=== PATIENT | male | born 1960 | race African-American/Black ===

== ENCOUNTER 2019-05-25 11:18 | Emergency (ER) | payer OTHER, SELFPAY ==
--- NOTE | ~2019-05-25 | CT_ITS ---
EXAMINATION: CT abdomen pelvis w con DATE: 05/25/2019 12:55 INDICATION: Left lower quadrant abdominal pain. Left flank pain. TECHNIQUE: Computed tomography (CT) of the abdomen and pelvis was performed with 100 mL Omnipaque 350 intravenous contrast. Automated exposure control and iterative reconstruction technique were employe d. The dose-length product was 1252.83 mGy-cm. COMPARISON: None. FINDINGS: The visualized portions of the lung bases demonstrate mild atelectasis. No pleural effusion . The heart size is normal. No pericardial effusion. The liver, gallbladder, spleen, pancreas, adrena l glands, and right kidney are normal. There is a 1 mm stone in left kidney. There is asymmetric earl a around left kidney. There is mild left hydroureter. The prostate is mildly enlarged. There are no d ilated loops of bowel. The appendix is normal. There are no pathologically enlarged lymph nodes. Ther e is no free intraperitoneal fluid. There is severe lower lumbar spondylosis. IMPRESSION: 1. Mild left hydroureter, which may be secondary to a recently passed stone. 2. 1 mm nonobstructing left kidney stone. Reviewed, dictated and finalized at location A.
[2019-05-25 11:20] VITALS: BP 136/76; PULSE 60; RESP 20; TEMP 36.4; O2SAT 100
--- NOTE | 2019-05-25 11:22 | ED.GENADULT ---
HPI - General Adult General Chief complaint: Abdominal Pain Stated complaint: L abd pain Time Seen by Provider: 05/25/19 11:21 Source: patient Mode of arrival: ambulatory Limitations: no limitations History of Present Illness HPI narrative: Patient is a 59-year-old male who presents for evaluation of severe abdominal pain. Patient initially presented to an urgent care center for 10 out of 10 left lower quadrant pain and left flank pain and was referred to our facility. At the time of assessment at our facility, patient's pain is improved, rated 3 out of 4 in severity in the left flank with radiation to the left lower abdomen. No associated fever, chills, nausea, vomiting, hematuria, dysuria or diarrhea. No chest pain or shortness of breath. No numbness. Patient does endorse some recent heavy lifting, states he was moving very heavy bags of mulch 2 days ago, but the pain in his back did not occur until this morning and it was very acute onset. No testicular pain. Related Data Allergies Allergy/AdvReac Type Severity Reaction Status Date / Time NKDA Allergy Unknown unknown Uncoded 01/29/19 10:57 Review of Systems Review of Systems: Narrative: CONSTITUTIONAL: Denies fever, chills, or sweats. ENT: Denies rhinorrhea, congestion, sore throat, or otalgia. CARDIOVASCULAR: Denies chest pain, palpitations, or edema. RESPIRATORY: Denies cough or dyspnea. GASTROINTESTINAL: Denies abdominal pain, nausea, vomiting, or diarrhea. GENITOURINARY: Denies dysuria or hematuria. SKIN: Denies rash or itching. MUSCULOSKELETAL: Reports left flank pain NEUROLOGIC: Denies headache, numbness, or weakness. [facility] Past Medical History Medical History (Updated 05/25/19 @ 13:43 by Darcie Gregorio MD) Tonsillectomy planned Social History Social History Smoking status: Never smoker Second hand tobacco smoke exposure: No Alcohol intake: never Substance use: never Substance use type: does not use Gender identity (if verbalized by the patient): Male Exam Narrative: Exam Narrative: GENERAL: Awake, alert, conversant HEAD: Normocephalic, atraumatic. EYES: PERRLA and EOMI. ENT: Nares clear, no rhinorrhea or epistaxis. Mucous membranes moist. NECK: Supple. CHEST: No respiratory distress, breathing even and non labored HEART: Regular rate, sinus rhythm ABDOMEN:Non distended, non tender, no suprapubic tenderness, mild left flank tenderness EXTREMITIES: Normal range of motion. No edema. SKIN: Warm, dry, no rash. NEURO:No focal deficits. Alert and oriented x3 Course Vital Signs Vital signs: Vital Signs Temperature 36.4 C 05/25/19 11:20 Pulse Rate 60 05/25/19 11:20 Respiratory Rate 20 05/25/19 11:20 Blood Pressure 136/76 05/25/19 11:20 Pulse Oximetry 100 05/25/19 11:20 Temperature 36.4 C 05/25/19 11:20 Pulse Rate 58 L 05/25/19 11:32 Respiratory Rate 18 05/25/19 11:32 Blood Pressure 132/80 05/25/19 11:32 Pulse Oximetry 99 05/25/19 11:32 Medical Decision Making MDM Narrative Medical decision making narrative: Patient presented for evaluation of left flank pain. At the time of initial assessment, ABCs are intact and vital signs are stable. Pain is mild to moderate, no severe pain. Pain is not reproducible on exam. IV access obtained and labs are drawn. Urine is notable for hematuria without infection. Other labs are reassuring. CT scan with evidence of left hydroureter, possibly due to recently passed stone which would fit with the patient's clinical history. Patient continues to have some mild, aching pain, thus we can give him a very short-term prescription for outpatient pain medicine. I did let him know he has another kidney stone present that he will likely pass in the future. Patient was then discharged home and advised to follow-up with his PC. Vital Signs Vital Signs: Vital Signs Temperature 36.4 C 05/25/19 11:20 Pulse Rate 60
[2019-05-25 11:32] VITALS: BP 132/80; PULSE 58; RESP 18; O2SAT 99
--- NOTE | 2019-05-25 11:33 | PC.NURSE ---
pt ambulating to the restroom at this time w/ erp alessandro.
[2019-05-25 11:36] LABS: Basophils Percent Auto 0.4 % (0.2-1.2); Eosinophils Percent Auto 0.1 % (0-4.4); Hematocrit 43.5 % (42.0-52.0); Immature Granulocyte Absolute 0.06 K/mm3 (0.00-0.031); Immature Granulocyte Percent A 0.5 % (0-0.5); Lymphocytes Absolute Auto 1.12 K/mm3 (0.9-3.2); Mean Corpuscular HGB Conc 34.5 g/dl (32-36); Mean Corpuscular Hemoglobin 28.1 pg (26-34); Mean Corpuscular Volume 81.6 fl (80-100); Mean Platelet Volume 12.3 fl (7.4-10.4); Monocytes Absolute Auto 0.5 K/mm3 (0.1-0.6); Monocytes Percent Auto 4.8 % (2.6-8.5); Neutrophils Absolute Auto 9.5 K/mm3 (1.3-6.7); Neutrophils Percent Auto 84.2 % (45.5-73.1); Platelet Count Result 296 k/mm3 (150-375); Red Blood Count 5.33 M/mm3 (4.6-6.20); Red Cell Distribution Width 13.6 % (11.5-14.5); White Blood Count 11.2 K/mm3 (4.5-10.0)
[2019-05-25] MEDS: ONDANSETRON INJ 4 MG/2 ML VIAL IV PUSH (11:44)
[2019-05-25] MEDS: SODIUM CHLORIDE 0.9% IV 1,000 ML 999 ML IV CONT (11:44)
[2019-05-25] MEDS: MORPHINE SULFATE 4 MG/ML INJ IV PUSH (11:44)
[2019-05-25 11:59] LABS: Alanine Aminotransferase 20 U/L (4-50); Albumin Level 4.7 g/dL (3.5-5.1); Alkaline Phosphatase 98 U/L (38-126); Aspartate Amino Transferase 39 U/L (17-59); Bilirubin,Total 0.8 mg/dL (0.2-1.3); Blood Urea Nitrogen 17 mg/dL (9-20); Calcium 9.3 mg/dL (8.4-10.2); Carbon Dioxide 29 mmol/L (22-30); Chloride 102 mmol/L (98-107); Estimated CRCL calculation 93 ml/min; Estimated Glomerular Filt Rate > 60; Glucose 149 mg/dL (75-110); Lipase 161 U/L (23-300); Potassium 4.4 mmol/L (3.4-5.0); Sodium 139 mmol/L (137-145)
[2019-05-25 12:28] LABS: Add Urine Microscopic? YES; Appearance Urine Clear (Clear); Bacteria Urine Trace /hpf; Bilirubin Urine Negative (Negative); Blood Urine 2+ (Negative); Color Urine Yellow (Yellow); Glucose Urine UA Negative (Negative); Ketones Urine Trace mg/dL (Negative); Leukocyte Esterase Ur Negative LEU/UL (Negative); Mucus Urine Moderate /lpf; Nitrate Urine Negative (Negative); Protein Urine 1+ mg/dL (Negative); RBC Urine 51-75 /hpf (0-2); Urobilinogen Urine Negative mg/dL (<2.0); WBC Urine 0-3 /hpf
[2019-05-25 13:58] VITALS: BP 132/87; PULSE 62; RESP 18; O2SAT 100
== END 2019-05-25 13:59 | disposition home or self-care (01) ==
PROVIDERS: Emergency Provider Emergency Medicine; PCP Family Medicine
DX: N13.2 Hydronephrosis with renal and ureteral calculous obstruction (principal)
CPT/HCPCS: 36415; 74177; 80053; 81001; 83690; 85025; 96365; 96375; 99284; J0131; J2270; J2405; J7030; Q9967